=== PATIENT | male | born 1995 | race African-American/Black ===

== ENCOUNTER 2020-01-12 12:23 | Emergency (ER) | payer OTHER ==
[~2020-01-12] VITALS: Ht 177.8 cm; Wt 96.6 kg
[2020-01-12] MEDS ORDERED: ACETAMINOPHEN 325 MG TAB PO ONE (12:45)
[2020-01-12 13:15] LABS: INFLUENZA A AMPLIFICATION POSITIVE (NEGATIVE); INFLUENZA B AMPLIFICATION NEGATIVE (NEGATIVE)
[2020-01-12 13:44] VITALS: BP 108/59
[2020-01-12] MEDS ORDERED: OSEL75CA PO (13:46)
== END 2020-01-12 13:50 | disposition home or self-care (01) ==
LOC: M ED 12:23
DX: J09.X2 Influenza due to identified novel influenza A virus with other respiratory manifestations (principal)